=== PATIENT | male | born 1970 | race Caucasian/White ===

== ENCOUNTER 2024-12-19 11:03 | Inpatient (IN) | payer MEDICAID, OTHER ==
[~2024-12-19] VITALS: Ht 180.3 cm; Wt 98.0 kg
[2024-12-19] VITALS (7 sets, daily range): BP systolic 122–149; BP diastolic 79–82; PULSE 89–97; RESP 18–20; TEMP 98.1–98.2; O2SAT 94–98
--- NOTE | 2024-12-19 11:34 | ED.PDOC ---
GI ASSESSMENT HPI Comments 54 y/o M presents with significant other for c/o blood in his vomit, black stools, lightheadedness, and slur speech. Patient and significant other are poor historians. Patient reports producing red-tinted, black vomitus and black stool. noticed patient having slur speech for the past 2 days. Last seen normal a ccording to was at least two nights ago. Patient reports an episode of lightheadedness today. Reports last vomiting and having a bowel movement at 0200 and 0900, respectively, this morning. Denies any current blood thinner. Patient denies any similar symptoms in the past. Significant other reports on patient drinking increase amounts of alcohol, lately, at 5-6 "tall cans" within the past week, with last intake being yesterday. Patient reports having increased seizure activity, lately, with last seizure taking place 1 week ago. He was placed on Lacosamide by his PCP 3 weeks ago to take alongside his Briviact. Denies having any abdominal pain, weakness, or other associated symptoms at this time. Vitals: temperature of 98.1F, pulse rate of 140, respiratory rate of 20, blood pressure of 117/98, and a SpO2 of 98%RA Past medical history: seizures on 100mg Briviact and 100mg Lacosamide Past surgical history: hernia repair Donaldson: GI bleed alcohol abuse HPI: Poor Historian. Past Medical History: Past Surgical History: REVIEW OF SYSTEMS: CONSTITUTIONAL: Denies acute: fever, diaphoresis, chills, HEAD: Denies acute: headache, photophobia Eyes: Denies acute: Double vision, vision loss, eye pain, eye discharge. EARS: Denies acute: tinnitus, hearing loss, ear discharge, ear pain, THROAT: Denies acute: sore throat, swelling, difficulty swallowing , pain with swallowing, change in voice. NECK: Denies acute: neck pain, neck swelling, stiff neck. HEART: Denies acute : chest pain, palpitations, LUNGS: Denies acute: SOB, wheezing, cough, hemoptysis ABDOMEN: Denies acute: abdominal pain, SKIN: Denies acute: rash, redness, lesions, itchiness. EXTREMITIES: Denies acute: calf pain, numbness, tingling, weakness, denies pain in extremity. Denies acute: Low back pain. Neuro: Denies acute: focal neurological deficit, motor or sensory focal neurological deficit, , seizure like activity, confusion, , change in mental status, loss of bowel or bladder function, cauda equina like symptoms. : Denies acute: dysuria, hematuria, flank pain, increase in urinary frequency. PSYCH: Denies acute: hallucination, suicidal ideation, homicidal ideation. PHYSICAL EXAM: General: -----[id number]---acute distress, awake and alert. Head: normocephalic, atraumatic. Neck: supple, trachea is midline, no swelling. Throat: Normal phonation. Eyes:, no erythema, no purulent discharge, no proptosis, no icterus. Heart: regular tachycardic,, no significant murmur appreciated. Lungs: no apparent respiratory distress, Able to speak in full sentences. No wheezing, no rhonchi, no crackles. No stridors Clear to auscultation bilaterally. Abdomen: non tender to palpation, non distended, soft, no guarding, no rebound, + bowel sounds. Neuro: Awake, Alert, oriented to name, self, situation, follows commands GCS=15. Speech is normal. Skin: no petechia, no purpura, no cyanosis, non-pale, not jaundice. Lower extremities: --no - Pitting edema no deformity, no focal swelling, no calf TTP. Makes eye contact. moves all four extremities. Face: no apparent facial droop. Ambulating in the ED independently. Stroke: finger to nose cerebellar testing is intact. No pronator drift. Symmetrical natural resources specialist muscle strength b/l PERRLA, EOM-I CN 2-12 are grossly intact, No nystagmus. No nuchal rigidity, Kernig's sign, Brudzinski's sign, no meningeal signs. ED COURSE: Chief Complaint: GI Bleed Time Seen by MD: 11:15 Reviewed Notes: Nurses Notes, Medications, Allergies Allergies: Coded Allergies: Amoxicillin (Verified Allergy, Unknown, 12/19/24) Information Source: Patient, Significant Other Mode of Arrival: Ambulatory Was a procedure done? Was a procedure done?: No GI differential Dx Differential Diagnosis: Other (Diverticulitis, colitis, fistula, neoplasm, hemorrhoids, anal fissures, constipation, Crohn's disease, ulcerative colitis) X-Ray, Labs, Meds, VS Vital Signs Date Time Temp Pulse Resp B/P (MAP) Pulse Ox O2 Delivery O2 Flow Rate FiO2 12/19/24 11:50 98.2 99 16 140/ 98 98.2 12/19/24 11:49 89 20 98 Room Air* 0 21 12/19/24 11:22 98.1 140 20 117/98 (104) 98 98.1 Lab Test 12/19/24 14:31 12/19/24 13:37 12/19/24 12:49 12/19/24 11:40 Range/Units Troponin I High Sensitivity 9 11 12 </=54 ng/L Lactic Acid Level 1.7 3.2 *H 0.4-2.0 mmol/L White Blood Count 8.2 4.4-10.8 10^3/uL Red Blood Count 4.32 L 4.5-5.90 10^6/uL Hemoglobin 14.5 13.5-17.5 g/dL Hematocrit 42.9 41.0-53.0 % Mean Corpuscular Volume 99.4 80.0-100.0 fL Mean Corpuscular Hemoglobin 33.7 H 28.0-32.0 pg Mean Corpuscular Hemoglobin Concent 33.9 32.0-36.0 g/dL Red Cell Distribution Width 17.9 H 11.8-14.3 % Platelet Count 198 140-450 10^3/uL Mean Platelet Volume 8.1 6.9-10.8 fL Neutrophils (%) (Auto) 75.2 37.0-80.0 % Lymphocytes (%) (Auto) 17.2 10.0-50.0 % Monocytes (%) (Auto) 7.0 0.0-12.0 % Eosinophils (%) (Auto) 0.1 0.0-7.0 % Basophils (%) (Auto) 0.5 0.0-2.0 % Neutrophils # (Auto) 6.1 1.6-8.6 10 ^3/uL Lymphocytes # (Auto) 1.4 0.4-5.4 10 ^3/uL Monocytes # (Auto) 0.6 0-1.3 10 ^3/uL Eosinophils # (Auto) 0 0-0.8 10 ^3/uL Basophils # (Auto) 0 0-0.2 10 ^3/uL Nucleated Red Blood Cells 0.0 % Prothrombin Time 9.8 9.3-11.8 sec Prothrombin Time INR 0.92 0.9-1.15 Activated Partial Thromboplast Time 25.0 24.5-34.5 SEC Sodium Level 130 L 136-145 mmol/L Potassium Level 4.1 3.5-5.1 mmol/L Chloride Level 91 L 98-107 mmol/L Carbon Dioxide Level 26 20-31 mmol/L Anion Gap 13 5-15 Blood Urea Nitrogen 27 H 9-23 mg/dL Creatinine 1.08 0.700-1.30 mg/dL Glomerular Filtration Rate Calc 82 >90 mL/min BUN/Creatinine Ratio 25.0 H 10.0-20.0 Serum Glucose 106 74-106 mg/dL Calcium Level 10.6 H 8.7-10.4 mg/dL Magnesium Level 2.1 1.6-2.6 mg/dL Total Bilirubin 2.3 H 0.2-1.0 mg/dL Aspartate Amino Transferase (AST) 59 H 13-40 U/L Alanine Aminotransferase (ALT) 42 H 7-40 U/L Alkaline Phosphatase 111 46-116 U/L Creatine Kinase 749 H 46-171 U/L B-Type Natriuretic Peptide 33.64 0-100 pg/mL Total Protein 7.4 5.7-8.2 g/dL Albumin 4.2 3.2-4.8 g/dL Lipase 38 12-53 U/L Plasma/Serum Blood Alcohol 3.6 <10 mg/dL Test 12/19/24 11:32 12/19/24 00:00 Range/Units POC Glucose 116 H 70-106 mg/dl Urine Color Light-orange Yellow Urine Clarity Turbid H Clear Urine pH 6.0 5.0-9.0 Urine Specific [place] 1.027 1.001-1.035 Urine Protein Trace H Negative Urine Ketones 1+ H Negative Urine Blood Negative Negative /uL Urine Nitrite Negative Negative Urine Bilirubin Negative Negative Urine Urobilinogen Normal Negative mg/dL Urine Leukocyte Esterase Negative Negative /uL Urine RBC <1 0 - 3 /hpf Urine Microscopic WBC 1 0-3 /HPF Urine Squamous Epithelial Cells Few <5 /hpf Urine Bacteria None seen None Seen /hpf Urine Hyaline Casts Mod 0 - 2 /lpf Urine Mucus Few None Seen Urine Glucose Normal Normal mg/dL Urine Opiates Screen Neg NEGATIVE Urine Fentanyl Screen Neg NEGATIVE Urine Barbiturates Screen Neg NEGATIVE Urine Phencyclidine Screen Neg NEGATIVE Urine Amphetamines Screen Neg NEGATIVE Urine Benzodiazepines Screen Pos NEGATIVE Urine Cocaine Screen Neg NEGATIVE Urine Cannabinoids Screen Neg NEGATIVE Current Medications Medications (Trade) Dose Ordered Sig/Taylor Route Start Time Stop Time Status Last Admin Sodium Chloride 1,000 ml @ 1,000 mls/hr Q1H ONCE IV 12/19/24 11:30 12/19/24 12:29 DC 12/19/24 11:41 Ondansetron HCl (Zofran) 8 mg ONCE ONCE IV 12/19/24 11:30 12/19/24 11:31 DC 12/19/24 11:40 Pantoprazole Sodium (Protonix) 40 mg ONCE ONCE IV 12/19/24 11:30 12/19/24 11:31 DC 12/19/24 11:40 Thiamine HCl 100 mg ONCE ONCE IV 12/19/24 11:30 12/19/24 11:31 DC 12/19/24 11:40 Lorazepam (Ativan Inj) 1 mg ONCE ONCE IV 12/19/24 11:30 12/19/24 11:31 DC 12/19/24 11:41 Sodium Chloride 1,000 ml @ 1,000 mls/hr Q1H ONCE IV 12/19/24 14:00 12/19/24 14:59 DC 12/19/24 14:15 [place] [id number] Ph: [phone] DIAGNOSTIC IMAGING Diagnostic Imaging Report : [id number] Signed PATIENT: MAANSA DONALDSON ACCT: [id number] UNIT: [id number] : 1970 LOC: ER ROOM / BED: / AGE / SEX: 54 / M ADM STATUS: REG ER SERVICE 1120 ORDERING PHYSICIAN: CLEVELAND SUAREZ DO PROCEDURE(s): CXRP - CHEST PORTABLE REASON: n/v/d weak ORDER NUMBER(s): [id number], ACCESSION NUMBER(s): [id number] CHEST RADIOGRAPH Indication: n/v/d weak Technique: Single frontal view of the chest was obtained COMPARISON: None FINDINGS: Lines and Tubes: None Lungs: Clear Pleura: No effusion. No pneumothorax. Cardiomediastinal contours: Unremarkable Bones: Unremarkable IMPRESSION: 1. No acute disease. ATED BY: BIJU ANTONIO MD DICTATED DATE/TIME: 12/19/241217 SIGNED BY: BIJU ANTONIO MD SIGNED DATE/TIME: 12/19/241217 CC: [place] [id number] Ph: [phone] DIAGNOSTIC IMAGING Diagnostic Imaging Report : [id number] Signed PATIENT: MANASA DONALDSON ACCT: [id number] UNIT: [id number] : 1970 LOC: ER ROOM / BED: / AGE / SEX: 54 / M ADM STATUS: REG ER SERVICE 1120 ORDERING PHYSICIAN: CLEVELAND SUAREZ DO PROCEDURE(s): HWOCT - HEAD WITHOUT CONTRAST REASON: n/v/d weak slurred h/o sz ORDER NUMBER(s): [id number], ACCESSION NUMBER(s): [id number] EXAM: CT HEAD WITHOUT CONTRAST INDICATION: n/v/d weak slurred h/o sz TECHNIQUE: CT of the head without intravenous contrast. Radiation Dose : 1. Head: CT Dose: CTDI volume is 53 mGy. Dose-length product is 852 mGy*cm The dose indicators for CT are the volume Computed Tomography (CT) Dose Index (CTDIvol) and the Dose Length Product (DLP), and are measured in units of mGy and mGy-cm, respectively. These indicators are not patient dose, but values generated from the CT scanner acquisition factors. The report includes radiation exposure data for exposures received during this examination. COMPARISON: None FINDINGS: There is no evidence of acute intracranial hemorrhage, extra-axial collection, mass effect, midline shift, herniation or hydrocephalus. The ventricles, sulci and cisterns are age appropriate. The barrera-white differentiation is intact. Patchy periventricular and subcortical white matter hypoattenuation is nonspecific but may be related to small vessel ischemic disease. The visualized paranasal sinuses and mastoid air cells are clear. The surrounding soft tissues and osseous structures are unremarkable. IMPRESSION: 1. No acute intracranial abnormality. Radiation optimization: All CT scans at this facility use at least one of these dose optimization techniques: automated exposure control mA and/or kV adjustment per patient size (includes targeted exams where dose is matched to clinical indication) or iterative reconstruction. ATED BY: BIJU ANTONIO MD DICTATED DATE/TIME: 12/19/241212 SIGNED BY: BIJU ANTONIO MD SIGNED DATE/TIME: 12/19/241212 CC: [place] [id number] Ph: [phone] DIAGNOSTIC IMAGING Diagnostic Imaging Report : [id number] Signed PATIENT: MANASA DONALDSON ACCT: [id number] UNIT: [id number] : 1970 LOC: ER ROOM / BED: / AGE / SEX: 54 / M ADM STATUS: REG ER SERVICE 1120 ORDERING PHYSICIAN: CLEVELAND SUAREZ DO PROCEDURE(s): ABPL - CT AB PEL WO CON-NO ORAL OR IV REASON: gi bleed ORDER NUMBER(s): [id number], ACCESSION NUMBER(s): [id number] EXAM: CT Abdomen and Pelvis Without Intravenous Contrast CLINICAL INDICATION: gi bleed TECHNIQUE: Axial computed tomography images of the abdomen and pelvis without intravenous contrast. This CT exam was performed using one or more of the following dose reduction techniques: automated exposure control, adjustment of the mA and/or kV according to patient size, and/or use of iterative reconstruction technique. CONTRAST: RADIATION DOSE: CTDIvol = 19.01 mGy, DLP = 981.4 mGy-cm COMPARISON: FINDINGS: LUNG BASES: Unremarkable. No mass. No consolidation. MEDIASTINUM: Moderate esophageal hiatal hernia. ABDOMEN: LIVER: Hepatomegaly with fatty infiltration. GALLBLADDER AND BILE DUCTS: Unremarkable. No calcified stones. No ductal dilation. PANCREAS: Unremarkable. No ductal dilation. SPLEEN: Unremarkable. No splenomegaly. ADRENALS: Unremarkable. No mass. KIDNEYS AND URETERS: Unremarkable. No obstructing stones. No hydronephrosis. STOMACH AND BOWEL: Unremarkable. No obstruction. No mucosal thickening. PELVIS: APPENDIX: No findings to suggest acute appendicitis. BLADDER: Unremarkable. No stones. REPRODUCTIVE: Unremarkable as visualized. ABDOMEN and PELVIS: INTRAPERITONEAL SPACE: Unremarkable. No free air. No significant fluid collection. BONES/JOINTS: Multiple anterior wedging deformities of L1, T12, T11 and T10 vertebral bodies, likely chronic. No dislocation. SOFT TISSUES: Umbilical hernia containing fat. Bilateral inguinal hernias, larger on the right. VASCULATURE: Unremarkable. No abdominal aortic aneurysm. LYMPH NODES: Unremarkable. No enlarged lymph nodes. OTHER FINDINGS: . . IMPRESSION: 1. Moderate esophageal hiatal hernia. 2. Hepatomegaly with fatty infiltration. 3. Umbilical hernia containing fat. 4. Bilateral inguinal hernias, larger on the right. ATED BY: YURY PEARCE MD DICTATED DATE/TIME: 12/19/24 124 SIGNED BY: YURY PEARCE MD SIGNED DATE/TIME: 12/19/241241 CC: Time of 1ST Reevaluation: 11:15 Reevaluation 1ST: Unchanged Patient Education/Counseling: Diagnosis, Treatment Family Education/Counseling: Diagnosis, Treatment Comments Patient presented with the above HPI.---GI bleed---workup was initiated. patient was found with the above mentioned diagnosis. the following medications were ordered: please refer to order lists of meds and tests obtained by myself Dr. Suarez. Patient ED course and VS have been stabilized. Patient has been reassessed in the ED and remained in a stable condition. Pertinent incidental findings were discussed with the patient and/or family. Patient/family voices understanding and is agreeable with plan. Patient has been observed in the ED adequate length of time to insure improvement/stability. Escalation of care considered: Consideration of escalation to observation or admission Patient has some slight tremors suspecting alcohol withdrawal. I gave him some Ativan. Patient was given fluids and Protonix. Patient was ADMITTED to the medicine team for further evaluation and treatment of their presentation. All the reports of any imaging studies that were ordered by myself were reviewed by myself. Departure 1 Departure Time of Disposition: 13:48 Impression: Primary Impression: GI bleed Additional Impressions: Alcohol abuse Rhabdomyolysis Elevated lactic acid level Disposition: ADMITTED INPATIENT Admit to: [facility] Condition: Guarded Discharged With: Self Critical Care Note Critical Care Time?: Yes (1 hr-critical care time only) I personally scribed for CLEVELAND SUAREZ DO ([email or web address]) on 4/26/25 at 11:34. Electronically submitted by Isael Lopez ([email or web address]). I personally scribed for CLEVELAND SUAREZ DO ([email or web address]) on 12/19/24 at 11:43. Elect ronically submitted by Isale Lopez ([email or web address]). I personally scribed for CLEVELAND SUAREZ DO ([email or web address]) on 12/19/24 at 12:03. El ectronically submitted by Isael Lopez ([email or web address]). I personally scribed for CLEVELAND SUAREZ DO ([email or web address]) on 12/19/24 at 14:11. Electronically submitted by Isael Lopez ([email or web address]). CLEVELAND SUAREZ DO Dec 19, 2024 11:34
[2024-12-19] MEDS: THIAMINE 100mg/ml INJ (200mg/2ml VIAL) IV ONE (11:40)
[2024-12-19] MEDS: ONDANSETRON HCL 4 MG/2 ML VIAL IV ONE (11:40)
[2024-12-19] MEDS: PANTOPRAZOLE 40 MG/10 ML VIAL INJ IV ONE (11:40)
[2024-12-19] MEDS: SODIUM CHLORIDE 0.9% 1,000 ML IV ONE ×2 (11:41→14:15)
[2024-12-19] MEDS: LORazepam 2MG/ML-1ML VIAL IV ONE (11:41)
[2024-12-19 12:03] LABS: Basophils # (auto) 0 10 ^3/uL (0-0.2); Basophils % (auto) 0.5 % (0.0-2.0); Eosinophils # (auto) 0 10 ^3/uL (0-0.8); Eosinophils % (auto) 0.1 % (0.0-7.0); Hematocrit 42.9 % (41.0-53.0); Hemoglobin 14.5 g/dL (13.5-17.5); Lymphocytes # (auto) 1.4 10 ^3/uL (0.4-5.4); Lymphocytes % (auto) 17.2 % (10.0-50.0); Mean Corpuscular Hemoglobin 33.7 pg (28.0-32.0); Mean Corpuscular Hgb Conc. 33.9 g/dL (32.0-36.0); Mean Corpuscular Volume 99.4 fL (80.0-100.0); Monocytes # (auto) 0.6 10 ^3/uL (0-1.3); Neutrophils # (auto) 6.1 10 ^3/uL (1.6-8.6); Neutrophils % (auto) 75.2 % (37.0-80.0); Platelet Count (auto) 198 10^3/uL (140-450); Red Blood Cells 4.32 10^6/uL (4.5-5.90); Red Cell Distribution Width 17.9 % (11.8-14.3); White Blood Cell 8.2 10^3/uL (4.4-10.8)
--- NOTE | 2024-12-19 12:15 | DVH ---
EXAM: CT HEAD WITHOUT CONTRAST INDICATION: n/v/d weak slurred h/o sz TECHNIQUE: CT of the head without intravenous contrast. Radiation Dose : 1. Head: CT Dose: CTDI volume is 53 mGy. Dose-length product is 852 mGy*cm The dose indicators for CT are the volume Computed Tomography (CT) Dose Index (CTDIvol) and the Dose Length Product (DLP), and are measured in units of mGy and mGy-cm, respectively. These indicators are not patient dose, but values generated from the CT scanner acquisition factors. The report includes radiation exposure data for exposures received during this examination. COMPARISON: None FINDINGS: There is no evidence of acute intracranial hemorrhage, extra-axial collection, mass effect, midline s hift, herniation or hydrocephalus. The ventricles, sulci and cisterns are age appropriate. The barrera-white differentiation is intact. Patchy periventricular and subcortical white matter hypoattenuation is nonspecific but may be related to small vessel ischemic disease. The visualized paranasal sinuses and mastoid air cells are clear. The surrounding soft tissues and osseous structures are unremarkable. IMPRESSION: 1. No acute intracranial abnormality. Radiation optimization: All CT scans at this facility use at least one of these dose optimization cleo hniques: automated exposure control mA and/or kV adjustment per patient size (includes targeted exam s where dose is matched to clinical indication) or iterative reconstruction.
--- NOTE | 2024-12-19 12:20 | DVH ---
CHEST RADIOGRAPH Indication: n/v/d weak Technique: Single frontal view of the chest was obtained COMPARISON: None FINDINGS: Lines and Tubes: None Lungs: Clear Pleura: No effusion. No pneumothorax. Cardiomediastinal contours: Unremarkable Bones: Unremarkable IMPRESSION: 1. No acute disease.
[2024-12-19 12:26] LABS: INR 0.92 (0.9-1.15); Prothrombin Time 9.8 sec (9.3-11.8)
[2024-12-19 12:27] LABS: Albumin 4.2 g/dL (3.2-4.8); Alkaline Phosphatase 111 U/L (46-116); Anion Gap 13 (5-15); Carbon Dioxide 26 mmol/L (20-31); Glucose 106 mg/dL (74-106); Lipase 38 U/L (12-53); Magnesium 2.1 mg/dL (1.6-2.6); Potassium 4.1 mmol/L (3.5-5.1); Total Protein 7.4 g/dL (5.7-8.2)
[2024-12-19 12:31] LABS: Chloride 91 mmol/L (98-107); Sodium 130 mmol/L (136-145)
[2024-12-19 12:32] LABS: Alanine Aminotransferase 42 U/L (7-40); Aspartate Aminotransferase 59 U/L (13-40); Bilirubin, Total 2.3 mg/dL (0.2-1.0); Blood Urea Nitrogen 27 mg/dL (9-23); Calcium 10.6 mg/dL (8.7-10.4); Creatine Kinase IFCC 749 U/L (46-171)
[2024-12-19 12:33] LABS: Lactic Acid w/Reflex 3.2 mmol/L (0.4-2.0)
--- NOTE | 2024-12-19 12:45 | DVH ---
EXAM: CT Abdomen and Pelvis Without Intravenous Contrast CLINICAL INDICATION: gi bleed TECHNIQUE: Axial computed tomography images of the abdomen and pelvis without intravenous contrast. This CT exam was performed using one or more of the following dose reduction techniques: automated exposure control, adjustment of the mA and/or kV according to patient size, and/or use of iterative r econstruction technique. CONTRAST: RADIATION DOSE: CTDIvol = 19.01 mGy, DLP = 981.4 mGy-cm COMPARISON: FINDINGS: LUNG BASES: Unremarkable. No mass. No consolidation. MEDIASTINUM: Moderate esophageal hiatal hernia. ABDOMEN: LIVER: Hepatomegaly with fatty infiltration. GALLBLADDER AND BILE DUCTS: Unremarkable. No calcified stones. No ductal dilation. PANCREAS: Unremarkable. No ductal dilation. SPLEEN: Unremarkable. No splenomegaly. ADRENALS: Unremarkable. No mass. KIDNEYS AND URETERS: Unremarkable. No obstructing stones. No hydronephrosis. STOMACH AND BOWEL: Unremarkable. No obstruction. No mucosal thickening. PELVIS: APPENDIX: No findings to suggest acute appendicitis. BLADDER: Unremarkable. No stones. REPRODUCTIVE: Unremarkable as visualized. ABDOMEN and PELVIS: INTRAPERITONEAL SPACE: Unremarkable. No free air. No significant fluid collection. BONES/JOINTS: Multiple anterior wedging deformities of L1, T12, T11 and T10 vertebral bodies, likel y chronic. No dislocation. SOFT TISSUES: Umbilical hernia containing fat. Bilateral inguinal hernias, larger on the right. VASCULATURE: Unremarkable. No abdominal aortic aneurysm. LYMPH NODES: Unremarkable. No enlarged lymph nodes. OTHER FINDINGS: . . IMPRESSION: 1. Moderate esophageal hiatal hernia. 2. Hepatomegaly with fatty infiltration. 3. Umbilical hernia containing fat. 4. Bilateral inguinal hernias, larger on the right.
[2024-12-19 13:41] LABS: Blood Alcohol 3.6 mg/dL (<10)
--- NOTE | 2024-12-19 14:02 | DVHHP2 ---
History of Present Illness Reason for Visit: gi bleed History of Present Illness 54-year-old male with a history of seizure disorder, chronic alcohol use, depression, and prior neurosurgery, presenting with hematemesis and melena. The patient reports vomiting dark red blood since , followed by black stools mixed with bright red blood. He also reports lightheadedness and slowed speech over the past two days but denies syncope. He denies abdominal pain, chest pain, or shortness of breath. He is compliant with anti-seizure medications and reports daily alcohol intake of four tall cans over the past nine months, exacerbated by stress related to his house foreclosure. No prior history of EGD or colonoscopy. He denies seizures during alcohol withdrawal but has not abstained from alcohol for long periods recently. In the ED, he received normal saline, Ativan, Pantoprazole, and Zofran. Labs showed hyponatremia (Na 130), elevated BUN (27), lactate 3.2, mild transaminitis (AST 59, ALT 47), total bilirubin 2.3, CK 749, and calcium 10.6. CBC was unremarkable. CT brain and CXR were unremarkable. CT abdomen/pelvis revealed a hiatal hernia, hepatomegaly, and bilateral inguinal hernias (right > left). Patient endorses significant depression and is agreeable to psychiatry and social work consults for alcohol rehabilitation. Past Medical History see hpi above Past Surgical History see hpi above Family History Reviewed, non-contributory to the management of this case. Past Social History Patient drinks heavy daily he has been drinking heavily daily for the last nine months four tall beers a daily denies drug or or smoking Review of Systems Constitutional: No: Fever, Chills, Sweats, Weakness, Malaise, Other Eyes: No: Pain, Vision change, Conjunctivae inflammation, Eyelid inflammation, Other, Redness ENT: No: Ear pain, Ear discharge, Nose pain, Nose discharge, Nose congestion, Mouth pain, Mouth swelling, Throat pain, Throat swelling, Other Respiratory: No: Cough, Dry, Shortness of breath, SOB with excertion, Wheezing, Hemoptysis, Pleuritic Pain, Sputum, Wheezing, Other Cardiovascular: No: Chest Pain, Palpitations, Orthopnea, Paroxysmal Noc. Dysp jolynn, Edema, Lt Headedness, Other Gastrointestinal: Nausea, Vomiting, Abdominal Pain, Melena, Hematochezia; No: Diarrhea, Constipation, Other Genitourinary: No Dysuria, No Frequency, No Incontinence, No Hematuria, No Retention, No Other Musculoskeletal: No: other, neck pain, shoulder pain, arm pain, back pain, hand pain, leg pain, foot pain Skin: Rash; No: Lesions, Jaundice, Bruising, Other Neurological: Weakness; No: Numbness, Incoordination, Change in speech, Confusion, Seizures, Other Allergies: Coded Allergies: Amoxicillin (Verified Allergy, Unknown, 12/19/24) Exam Vital Signs Vital Signs Date Time Temp Pulse Resp B/P (MAP) Pulse Ox O2 Delivery O2 Flow Rate FiO2 12/19/24 11:49 89 20 98 Room Air* 0 21 12/19/24 11:22 98.1 117/98 (104) 98.1 General Appearance: Alert, Oriented X3, Cooperative, No acute distress HEENT: Atraumatic, PERRLA, EOMI, Mucous membr. moist/pink Respiratory: Clear to auscultation, Normal air movement Cardiovascular: Regular rate, Normal S1, Normal S2, No murmurs Abdominal: Normal bowel sounds, Soft, No tenderness, No hepatospenomegaly, No masses Extremities: No clubbing, No cyanosis, No edema, Normal pulses, No tenderness/swelling Skin: No rashes, No breakdown, No significant lesion Neuro: Normal gait, Normal speech, Strength at 5/5 X4 ext, Normal tone, Sensation intact, Cranial nerves 3-12 NL Psych/Mental Status: Mental status NL, Mood NL Labs/Xrays CT scan abdomen pelvis shows esophageal hiatal hernia hepatomegaly bilateral inguinal hernia right greater than left without strangulation Chest x-ray is unremarkable CT scan of the brain unremarkable I reviewed labs, imaging CT scan abdomen pelvis, EKG and all diagnostic studies on this patient from ED records and the medical chart Labs Test 12/19/24 13:37 12/19/24 12:49 12/19/24 11:40 12/19/24 11:32 Range/Units Troponin I High Sensitivity 11 </=54 ng/L White Blood Count 8.2 4.4-10.8 10^3/uL Red Blood Count 4.32 L 4.5-5.90 10^6/uL Hemoglobin 14.5 13.5-17.5 g/dL Hematocrit 42.9 41.0-53.0 % Mean Corpuscular Volume 99.4 80.0-100.0 fL Mean Corpuscular Hemoglobin 33.7 H 28.0-32.0 pg Mean Corpuscular Hemoglobin Concent 33.9 32.0-36.0 g/dL Red Cell Distribution Width 17.9 H 11.8-14.3 % Platelet Count 198 140-450 10^3/uL Mean Platelet Volume 8.1 6.9-10.8 fL Neutrophils (%) (Auto) 75.2 37.0-80.0 % Lymphocytes (%) (Auto) 17.2 10.0-50.0 % Monocytes (%) (Auto) 7.0 0.0-12.0 % Eosinophils (%) (Auto) 0.1 0.0-7.0 % Basophils (%) (Auto) 0.5 0.0-2.0 % Neutrophils # (Auto) 6.1 1.6-8.6 10 ^3/uL Lymphocytes # (Auto) 1.4 0.4-5.4 10 ^3/uL Monocytes # (Auto) 0.6 0-1.3 10 ^3/uL Eosinophils # (Auto) 0 0-0.8 10 ^3/uL Basophils # (Auto) 0 0-0.2 10 ^3/uL Nucleated Red Blood Cells 0.0 % Prothrombin Time 9.8 9.3-11.8 sec Prothrombin Time INR 0.92 0.9-1.15 Activated Partial Thromboplast Time 25.0 24.5-34.5 SEC Sodium Level 130 L 136-145 mmol/L Potassium Level 4.1 3.5-5.1 mmol/L Chloride Level 91 L 98-107 mmol/L Carbon Dioxide Level 26 20-31 mmol/L Anion Gap 13 5-15 Blood Urea Nitrogen 27 H 9-23 mg/dL Creatinine 1.08 0.700-1.30 mg/dL Glomerular Filtration Rate Calc 82 >90 mL/min BUN/Creatinine Ratio 25.0 H 10.0-20.0 Serum Glucose 106 74-106 mg/dL Calcium Level 10.6 H 8.7-10.4 mg/dL Magnesium Level 2.1 1.6-2.6 mg/dL Total Bilirubin 2.3 H 0.2-1.0 mg/dL Aspartate Amino Transferase (AST) 59 H 13-40 U/L Alanine Aminotransferase (ALT) 42 H 7-40 U/L Alkaline Phosphatase 111 46-116 U/L Creatine Kinase 749 H 46-171 U/L B-Type Natriuretic Peptide 33.64 0-100 pg/mL Total Protein 7.4 5.7-8.2 g/dL Albumin 4.2 3.2-4.8 g/dL Lipase 38 12-53 U/L Plasma/Serum Blood Alcohol 3.6 <10 mg/dL POC Glucose 116 H 70-106 mg/dl Assessment/Plan Assessment/Plan 54-year-old male with alcohol use disorder, seizure history, and depression presenting with upper GI bleeding (hematemesis, melena), hyponatremia, and signs of alcohol dependence. Will admit for GI bleed management, alcohol withdrawal monitoring, and psychosocial support. acute Upper gastrointestinal bleeding likely secondary to esophageal varices or gastritis associated with alcohol use and hiatal hernia found on ct scan NPO status, initiate Pantoprazole drip GI consult placed for urgent EGD Monitor hemoglobin/hematocrit q6h Type and screen, ensure blood products available IV fluids for volume support Monitor for signs of hemodynamic instability ordered protonix drip for now acute Alcohol withdrawal risk in setting of chronic use last drink yesterday Start CIWA protocol Initiate Librium taper, continue Ativan PRN for breakthrough symptoms Seizure precautions in place Thiamine, folate, multivitamin supplementation Monitor electrolytes closely, replace magnesium and potassium as needed acute Hyponatremia likely due to chronic alcohol use and volume depletion Gentle correction with IV fluids Monitor sodium in am Avoid rapid correction to prevent central pontine myelinolysis acute Depression with psychosocial stressors related to housing instability Psychiatry (telepsych) consult placed Social work consult for alcohol rehab options and housing resources Evaluate for initiation of antidepressant therapy if appropriate chronic Seizure disorder, stable on home medications Continue home anti-seizure regimen nursing to reconcile but will start keppra for now Monitor for withdrawal-related seizure activity acute Hepatomegaly likely secondary to alcoholic liver disease Monitor LFTs, bilirubin, INR Picu Nurse on alcohol cessation Evaluate for signs of decompensated liver disease (ascites, encephalopathy) acute Hiatal hernia identified on imaging GI consult fu recs Proton pump inhibitor therapy ongoing acute Bilateral inguinal hernias (right > left), asymptomatic without strangulation No acute intervention needed Outpatient surgical referral if symptomatic post-discharge CHRONIC PROBLEM LIST: Alcohol Use Disorder Seizure Disorder Depression Status Post Neurosurgery FEN / PROPHYLAXIS (PPx): IV normal saline for volume repletion Monitor BMP, correct sodium cautiously banana bag Thiamine 100 mg IV daily, folate 1 mg daily NPO for GI evaluation, advance diet as tolerated post-EGD SCDs while inpatient/Hold pharmacologic prophylaxis until GI bleeding controlled Pantoprazole drip for active GI bleed, transition to BID dosing when stable DISPOSITION Admit to telemetry for monitoring of GI bleed and alcohol withdrawal. Await GI evaluation and EGD. Initiate CIWA protocol with seizure precautions. Coordinate care with psychiatry and social work for mental health and substance abuse management. Monitor labs, hemodynamics, and neurologic status closely. Plan discussed with: Patient Date of Service: Dec 19, 2024 Billing Provider: JEANINE HAMPTON DNP Common Visit Codes: [id number] INP/OBS CARE (HIGH) JEANINE HAMPTON DNP Dec 19, 2024 14:02
[2024-12-19] MEDS ORDERED: ONDANSETRON HCL 4 MG/2 ML VIAL IV PRN (16:00)
[2024-12-19] MEDS ORDERED: NITROGLYCERIN 0.4 MG SL TAB SL PRN (16:00)
[2024-12-19] MEDS ORDERED: LORazepam 2MG/ML-1ML VIAL IV PRN (16:00)
[2024-12-19] MEDS ORDERED: DOCUSATE SOD 100 MG CAP PO PRN (16:00)
[2024-12-19] MEDS ORDERED: MORPHINE SULFATE INJ 2 MG/ml SYRG IV PRN (16:00)
--- NOTE | 2024-12-19 16:49 | DVH ---
ABDOMINAL ULTRASOUND CLINICAL HISTORY: eval for upper abd pain and transaminitis TECHNIQUE: Multiple grayscale and color Doppler ultrasound images were obtained of the abdomen. WID: COMPARISON: CT abdomen and pelvis dated 12/19/2024 FINDINGS: Liver and Biliary System: Increased echogenicity, normal size measuring 16.9 cm. No focal hepatic o bservations. A cyst is seen within the liver, right lobe measuring up to 1.4 cm. No intrahepatic bile duct dilatation. The common duct measures 0.5 cm at the myron hepatis. The gallbladder normal c aliber without cholelithiasis or wall thickening. Pancreas: Not well-visualized. Kidneys: The right kidney is 10.2 cm . No hydronephrosis, increased echogenicity, shadowing stone, or focal lesion. IMPRESSION: 1. Hepatic steatosis. 2. No acute abnormality.
[2024-12-19 16:52] LABS: Blood Alcohol 3.2 mg/dL (<10); Magnesium 2.1 mg/dL (1.6-2.6)
[2024-12-19] MEDS: SODIUM CHLORIDE 0.9% 1,000 ML IV SCH (16:56)
[2024-12-19] MEDS: chlordiazePOXIDE HCL 25 MG CAP PO SCH (16:57)
[2024-12-19 17:32] LABS: Hematocrit 36.9 % (41.0-53.0); Hemoglobin 12.5 g/dL (13.5-17.5)
[2024-12-19 17:33] LABS: Urine Bacteria None Seen /hpf (None Seen)
[2024-12-19 17:45] LABS: Urine Blood Negative /uL (Negative); Urine Clarity Turbid (Clear); Urine Color Light-Orange (Yellow); Urine Hyaline Cast MOD /lpf (0 - 2); Urine Mucus FEW (None Seen); Urine Protein, UAD TRACE (Negative); Urine Specific Gravity 1.027 (1.001-1.035); Urine Squamous Epithelial Cell FEW /hpf (<5); Urine Urobilinogen Normal (Negative); Urine WBC 1 /HPF (0-3)
[2024-12-19 17:56] LABS: Amphetamine Screen, Urine Neg (NEGATIVE); Barbiturate Scree,Urine Neg (NEGATIVE); Benzodiazephine Screen, Urine Pos (NEGATIVE); Cocaine Screen, Urine Neg (NEGATIVE); Opiate Scree,Urine Neg (NEGATIVE); Phencyclidine Screen, Urine Neg (NEGATIVE)
[2024-12-19 18:01] LABS: Cannabinoid Screen, Urine Neg (NEGATIVE)
[2024-12-19] MEDS: PANTOPRAZOLE 40mg/50ML NS AE 50 ML IV SCH (18:54)
[2024-12-19] MEDS ORDERED: LACO100T3 PO (22:04)
[2024-12-19] MEDS ORDERED: BRIV1TAB7 PO (22:04)
[2024-12-20] VITALS (8 sets, daily range): BP systolic 92–117; BP diastolic 56–77; PULSE 82–101; RESP 16–20; TEMP 98–99.1; O2SAT 95–100
[2024-12-20] MEDS: FOLIC ACID 1 MG, MAGNESIUM SULF SDV 50% 8 MEQ, MULTIPLE VITAMIN 10 ML, THIAMINE INJ 100... INJ SCH (00:39)
[2024-12-20] MEDS: diphenhdrAMINE HCL 25 MG CAP PO PRN (05:53)
[2024-12-20 07:50] LABS: Basophils # (auto) 0 10 ^3/uL (0-0.2); Basophils % (auto) 0.3 % (0.0-2.0); Eosinophils # (auto) 0 10 ^3/uL (0-0.8); Eosinophils % (auto) 0.6 % (0.0-7.0); Hematocrit 32.6 % (41.0-53.0); Hemoglobin 10.8 g/dL (13.5-17.5); Lymphocytes # (auto) 2.4 10 ^3/uL (0.4-5.4); Lymphocytes % (auto) 38.4 % (10.0-50.0); Mean Corpuscular Hemoglobin 33.9 pg (28.0-32.0); Mean Corpuscular Hgb Conc. 33.1 g/dL (32.0-36.0); Mean Corpuscular Volume 102.5 fL (80.0-100.0); Monocytes # (auto) 0.6 10 ^3/uL (0-1.3); Neutrophils # (auto) 3.1 10 ^3/uL (1.6-8.6); Neutrophils % (auto) 50.7 % (37.0-80.0); Nucleated Red Blood Cells % 0.2 %; Platelet Count (auto) 135 10^3/uL (140-450); Red Blood Cells 3.18 10^6/uL (4.5-5.90); Red Cell Distribution Width 17.8 % (11.8-14.3); White Blood Cell 6.2 10^3/uL (4.4-10.8)
[2024-12-20 08:13] LABS: Alanine Aminotransferase 28 U/L (7-40); Alkaline Phosphatase 78 U/L (46-116); Anion Gap 10 (5-15); BUN/Creatinine Ratio 20.2 (10.0-20.0); Blood Urea Nitrogen 18 mg/dL (9-23); Carbon Dioxide 24 mmol/L (20-31); Chloride 101 mmol/L (98-107); Potassium 3.6 mmol/L (3.5-5.1)
[2024-12-20 08:14] LABS: Bilirubin, Total 1.2 mg/dL (0.2-1.0)
[2024-12-20 08:15] LABS: Aspartate Aminotransferase 41 U/L (13-40); Calcium 8.2 mg/dL (8.7-10.4); Glucose 74 mg/dL (74-106); Sodium 135 mmol/L (136-145); Total Protein 5.2 g/dL (5.7-8.2)
--- NOTE | 2024-12-20 09:12 | ECG ---
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
[2024-12-20] MEDS ORDERED: chlordiazePOXIDE HCL 25 MG CAP PO SCH (10:00)
[2024-12-20] MEDS: THIAMINE HCL 100 MG TAB PO ONE (11:45)
[2024-12-20] MEDS: FOLIC ACID 1 MG TAB PO ONE (12:46)
[2024-12-20] MEDS: MAGNESIUM OXIDE 400 MG TAB PO ONE (12:47)
[2024-12-20] MEDS: MULTIPLE VITAMIN TAB PO ONE (12:47)
--- NOTE | 2024-12-20 22:11 | DVHPN2 ---
Subjective The patient is seen and examined at bedside. No complaint today. Reviewed: Care Plan, H&P, Labs, Medications, Previous Orders, Radiology Changes from previous H/P or p: No Changes Eyes: No Pain, No Vision change, No Conjunctivae inflammation, No Eyelid inflammation, No Other, No Redness ENT: No Ear pain, No Ear discharge, No Nose pain, No Nose discharge, No Nose congestion, No Mouth pain, No Mouth swelling, No Throat pain, No Throat swelling, No Other Cardiovascular: No Chest Pain, No Palpitations, No Orthopnea, No Paroxysmal Noc. Dyspnea, No Edema, No Lt Headedness, No Other Respiratory: No Cough, No Dry, No Shortness of breath, No SOB with excertion, No Wheezing, No Hemoptysis, No Pleuritic Pain, No Sputum, No Other Gastrointestinal: Nausea, Vomiting, Abdominal Pain; No Diarrhea, No Constipation; Melena, Hematochezia; No Other Genitourinary: No Dysuria, No Frequency, No Incontinence, No Hematuria, No Retention, No Other Musculoskeletal: No other, No neck pain, No shoulder pain, No arm pain, No back pain, No hand pain, No leg pain, No foot pain Skin: Rash; No Lesions, No Jaundice, No Bruising, No Other Objective Vitals Vital Signs Date Time Temp Pulse Resp B/P (MAP) Pulse Ox O2 Delivery O2 Flow Rate FiO2 12/20/24 21:00 98.2 101 16 109/66 (80) 95 98.2 12/20/24 08:00 Room Air* 0 21 Intake/Output Intake and Output 12/20/24 07:00 Intake Total 3039.5 ml Balance 3039.5 ml Intake Oral 0 ml IV Total 3039.5 ml # Voids 1 General Appearance: Alert, Oriented X3, Cooperative, No acute distress HEENT: Atraumatic, PERRLA, EOMI, Mucous membr. moist/pink Neck: Supple Lungs: Clear to auscultation, Normal air movement Cardiovascular: Regular rate, Normal S1, Normal S2, No murmurs, Gallops, Rubs Abdomen: Normal bowel sounds, Soft, No tenderness, No hepatospenomegaly Neuro: Cranial nerves 3-12 NL Psych/Mental Status: Mental status NL Medications Current Medications Medications Dose Ordered Sig/Taylor Route Start Time Stop Time Status Last Admin Dose Admin Pantoprazole Sodium 50 ml @ 10 mls/hr Q5H IV 12/19/24 16:00 12/20/24 17:19 10 MLS/HR Chlordiazepoxide HCl 25 mg Q12HR PO 12/21/24 22:00 12/22/24 10:01 Chlordiazepoxide HCl 25 mg QAM PO 12/22/24 22:00 12/22/24 22:01 Sodium Chloride 1,000 ml @ 120 mls/hr Q8H20M IV 12/19/24 16:00 12/20/24 21:09 120 MLS/HR Ondansetron HCl 4 mg Q4HP PRN IV 12/19/24 16:00 Docusate Sodium 100 mg BIDPRN PRN PO 12/19/24 16:00 Morphine Sulfate 2 mg Q4HPRN PRN IV 12/19/24 16:00 Nitroglycerin 0.4 mg Q5MINP PRN SL 12/19/24 16:00 Lorazepam 1 mg Q2HPRN PRN IV 12/19/24 16:00 Diphenhydramine HCl 25 mg Q6HP PRN PO 12/20/24 05:45 12/20/24 20:15 25 MG Chlordiazepoxide HCl 50 mg Q12HR PO 12/20/24 22:00 12/21/24 10:01 Folic Acid 1 mg DAILY PO 12/21/24 10:00 Multivitamins 1 tab DAILY PO 12/21/24 10:00 Magnesium Oxide 400 mg DAILY PO 12/21/24 10:00 Thiamine HCl 100 mg DAILY PO 12/21/24 10:00 Laboratory Results Laboratory Tests 12/20/24 06:27 Chemistry Test 12/20/24 06:27 Albumin 3.0 g/dL (3.2-4.8) L Calcium Level 8.2 mg/dL (8.7-10.4) L Total Protein 5.2 g/dL (5.7-8.2) L LFT Test 12/20/24 06:27 Alanine Aminotransferase (ALT) 28 U/L (7-40) Alkaline Phosphatase 78 U/L (46-116) Aspartate Amino Transferase (AST) 41 U/L (13-40) H Total Bilirubin 1.2 mg/dL (0.2-1.0) H Urinalysis Test 12/19/24 00:00 Urine Color Light-orange (Yellow) Urine Clarity Turbid (Clear) H Urine pH 6.0 (5.0-9.0) Urine Specific [place] 1.027 (1.001-1.035) Urine Protein Trace (Negative) H Urine Ketones 1+ (Negative) H Urine Blood Negative /uL (Negative) Urine Nitrite Negative (Negative) Urine Bilirubin Negative (Negative) Urine Urobilinogen Normal mg/dL (Negative) Urine Leukocyte Esterase Negative /uL (Negative) Urine RBC <1 /hpf (0 - 3) Urine Microscopic WBC 1 /HPF (0-3) Urine Squamous Epithelial Cells Few /hpf (<5) Urine Bacteria None seen /hpf (None Seen) Urine Hyaline Casts Mod /lpf (0 - 2) Urine Mucus Few (None Seen) Urine Glucose Normal mg/dL (Normal) Microbiology Microbiology Date/Time Source Procedure Growth Status 12/20/24 00:44 Nose MRSA Screen - Final Complete Labs and/or images reviewed: Labs reviewed by me Assessment/Plan Assessment/Plan Acute Upper gastrointestinal bleeding likely secondary to ?esophageal varices or gastritis associated with alcohol use and hiatal hernia Acute Alcohol withdrawal risk in setting of chronic use Acute Hyponatremia likely due to chronic alcohol use and volume depletion acute Depression with psychosocial stressors related to housing instability Chronic Seizure disorder, stable on home medications Acute Hepatomegaly likely secondary to alcoholic liver disease Acute Hiatal hernia identified on imaging Acute Bilateral inguinal hernias (right > left), asymptomatic without strangulation Alcohol Use Disorder Seizure Disorder Depression Status Post Neurosurgery Continuing current management. Continuing with Protonix. Continuing with IV fluid. Waiting for GI specialist to see the patient. Advance patient's diet to clear Liquid diet. Waiting for GI specialist to see the patient. Continuing with seizure medication. Continuing with banana bag and alcohol withdrawal protocol. This medical document was created using an electronic medical record system with [employer] direct computerized dictation system. Although this document has been carefully reviewed, there may still be some phonetic and typographical errors. These areas are purely typographical due to imperfections of the software programs, and do not reflect any compromise in the patient's medical care. Plan discussed with: Patient My Orders Orders - GARY AVILES MD Procedure Category Date Status Time Soft Diet DIET 12/20/24 Transmitted Dinner Date of Service: Dec 20, 2024 Billing Provider: GARY AVILES MD Common Visit Codes: [id number] INP/OBS CARE(HIGH) GARY AVILES MD Dec 20, 2024 22:11
[2024-12-20] MEDS: chlordiazePOXIDE HCL 25 MG CAP PO SCH (22:17)
[2024-12-21] VITALS (8 sets, daily range): BP systolic 104–133; BP diastolic 59–85; PULSE 66–102; RESP 14–18; TEMP 97.9–98.4; O2SAT 92–97
[2024-12-21 08:19] LABS: Basophils # (auto) 0 10 ^3/uL (0-0.2); Basophils % (auto) 0.3 % (0.0-2.0); Eosinophils # (auto) 0.1 10 ^3/uL (0-0.8); Eosinophils % (auto) 1.8 % (0.0-7.0); Hematocrit 27.8 % (41.0-53.0); Hemoglobin 9.3 g/dL (13.5-17.5); Lymphocytes # (auto) 1.8 10 ^3/uL (0.4-5.4); Lymphocytes % (auto) 35.9 % (10.0-50.0); Mean Corpuscular Hemoglobin 33.8 pg (28.0-32.0); Mean Corpuscular Hgb Conc. 33.3 g/dL (32.0-36.0); Mean Corpuscular Volume 101.3 fL (80.0-100.0); Monocytes # (auto) 0.4 10 ^3/uL (0-1.3); Monocytes % (auto) 7.9 % (0.0-12.0); Neutrophils # (auto) 2.7 10 ^3/uL (1.6-8.6); Neutrophils % (auto) 54.1 % (37.0-80.0); Platelet Count (auto) 134 10^3/uL (140-450); Red Blood Cells 2.74 10^6/uL (4.5-5.90); Red Cell Distribution Width 17.4 % (11.8-14.3); White Blood Cell 5.1 10^3/uL (4.4-10.8)
[2024-12-21 08:35] LABS: Carbon Dioxide 24 mmol/L (20-31); Chloride 104 mmol/L (98-107); Potassium 3.7 mmol/L (3.5-5.1); Sodium 137 mmol/L (136-145)
[2024-12-21 08:38] LABS: Calcium 8.2 mg/dL (8.7-10.4)
[2024-12-21] MEDS: MULTIPLE VITAMIN TAB PO SCH (08:40)
[2024-12-21 08:41] LABS: BUN/Creatinine Ratio 14.6 (10.0-20.0); Blood Urea Nitrogen 13 mg/dL (9-23); Glucose 81 mg/dL (74-106)
[2024-12-21] MEDS: MAGNESIUM OXIDE 400 MG TAB PO SCH (08:41)
[2024-12-21] MEDS: THIAMINE HCL 100 MG TAB PO SCH (08:42)
[2024-12-21] MEDS: FOLIC ACID 1 MG TAB PO SCH (08:42)
[2024-12-21 08:45] LABS: Anion Gap 9 (5-15)
--- NOTE | 2024-12-21 11:13 | DVHPN2 ---
Subjective The patient is seen and examined at bedside. No complaint today. Reviewed: Care Plan, H&P, Labs, Medications, Previous Orders, Radiology Changes from previous H/P or p: No Changes Eyes: No Pain, No Vision change, No Conjunctivae inflammation, No Eyelid inflammation, No Other, No Redness ENT: No Ear pain, No Ear discharge, No Nose pain, No Nose discharge, No Nose congestion, No Mouth pain, No Mouth swelling, No Throat pain, No Throat swelling, No Other Cardiovascular: No Chest Pain, No Palpitations, No Orthopnea, No Paroxysmal Noc. Dyspnea, No Edema, No Lt Headedness, No Other Respiratory: No Cough, No Dry, No Shortness of breath, No SOB with excertion, No Wheezing, No Hemoptysis, No Pleuritic Pain, No Sputum, No Other Gastrointestinal: Nausea, Vomiting, Abdominal Pain; No Diarrhea, No Constipation; Melena, Hematochezia; No Other Genitourinary: No Dysuria, No Frequency, No Incontinence, No Hematuria, No Retention, No Other Musculoskeletal: No other, No neck pain, No shoulder pain, No arm pain, No back pain, No hand pain, No leg pain, No foot pain Skin: Rash; No Lesions, No Jaundice, No Bruising, No Other Objective Vitals Vital Signs Date Time Temp Pulse Resp B/P (MAP) Pulse Ox O2 Delivery O2 Flow Rate FiO2 12/21/24 09:00 98.2 70 18 109/66 (80) 95 98.2 12/21/24 08:00 Room Air* 0 21 Intake/Output Intake and Output 12/21/24 07:00 Intake Total 4110 ml Output Total 600 ml Balance 3510 ml Intake Oral 1120 ml IV Total 2990 ml Output Urine Total 600 ml # Voids 2 # Bowel Movements 1 General Appearance: Alert, Oriented X3, Cooperative, No acute distress HEENT: Atraumatic, PERRLA, EOMI, Mucous membr. moist/pink Neck: Supple Lungs: Clear to auscultation, Normal air movement Cardiovascular: Regular rate, Normal S1, Normal S2, No murmurs, Gallops, Rubs Abdomen: Normal bowel sounds, Soft, No tenderness, No hepatospenomegaly Neuro: Cranial nerves 3-12 NL Psych/Mental Status: Mental status NL Medications Current Medications Medications Dose Ordered Sig/Taylor Route Start Time Stop Time Status Last Admin Dose Admin Pantoprazole Sodium 50 ml @ 10 mls/hr Q5H IV 12/19/24 16:00 12/21/24 08:42 10 MLS/HR Chlordiazepoxide HCl 25 mg Q12HR PO 12/21/24 22:00 12/22/24 10:01 Chlordiazepoxide HCl 25 mg QAM PO 12/22/24 22:00 12/22/24 22:01 Sodium Chloride 1,000 ml @ 120 mls/hr Q8H20M IV 12/19/24 16:00 12/21/24 05:35 120 MLS/HR Ondansetron HCl 4 mg Q4HP PRN IV 12/19/24 16:00 Docusate Sodium 100 mg BIDPRN PRN PO 12/19/24 16:00 Morphine Sulfate 2 mg Q4HPRN PRN IV 12/19/24 16:00 Nitroglycerin 0.4 mg Q5MINP PRN SL 12/19/24 16:00 Lorazepam 1 mg Q2HPRN PRN IV 12/19/24 16:00 Diphenhydramine HCl 25 mg Q6HP PRN PO 12/20/24 05:45 12/20/24 20:15 25 MG Folic Acid 1 mg DAILY PO 12/21/24 10:00 12/21/24 08:42 1 MG Multivitamins 1 tab DAILY PO 12/21/24 10:00 12/21/24 08:40 1 TAB Magnesium Oxide 400 mg DAILY PO 12/21/24 10:00 12/21/24 08:41 400 MG Thiamine HCl 100 mg DAILY PO 12/21/24 10:00 12/21/24 08:42 100 MG Laboratory Results Laboratory Tests 12/21/24 06:36 Chemistry Test 12/21/24 06:36 Calcium Level 8.2 mg/dL (8.7-10.4) L Urinalysis Test 12/19/24 00:00 Urine Color Light-orange (Yellow) Urine Clarity Turbid (Clear) H Urine pH 6.0 (5.0-9.0) Urine Specific [place] 1.027 (1.001-1.035) Urine Protein Trace (Negative) H Urine Ketones 1+ (Negative) H Urine Blood Negative /uL (Negative) Urine Nitrite Negative (Negative) Urine Bilirubin Negative (Negative) Urine Urobilinogen Normal mg/dL (Negative) Urine Leukocyte Esterase Negative /uL (Negative) Urine RBC <1 /hpf (0 - 3) Urine Microscopic WBC 1 /HPF (0-3) Urine Squamous Epithelial Cells Few /hpf (<5) Urine Bacteria None seen /hpf (None Seen) Urine Hyaline Casts Mod /lpf (0 - 2) Urine Mucus Few (None Seen) Urine Glucose Normal mg/dL (Normal) Microbiology Microbiology Date/Time Source Procedure Growth Status 12/20/24 00:44 Nose MRSA Screen - Final Complete Labs and/or images reviewed: Labs reviewed by me Assessment/Plan Assessment/Plan Acute Upper gastrointestinal bleeding likely secondary to ?esophageal varices or gastritis associated with alcohol use and hiatal hernia Acute Alcohol withdrawal risk in setting of chronic use Acute Hyponatremia likely due to chronic alcohol use and volume depletion acute Depression with psychosocial stressors related to housing instability Chronic Seizure disorder, stable on home medications Acute Hepatomegaly likely secondary to alcoholic liver disease Acute Hiatal hernia identified on imaging Acute Bilateral inguinal hernias (right > left), asymptomatic without strangulation Alcohol Use Disorder Seizure Disorder Depression Status Post Neurosurgery Continuing current management. Continuing with Protonix. Continuing with IV fluid. Waiting for GI specialist to see the patient. Advance patient's diet to clear Liquid diet. Waiting for GI specialist to see the patient. Continuing with seizure medication. Continuing with banana bag and alcohol withdrawal protocol. This medical document was created using an electronic medical record system with [employer] direct computerized dictation system. Although this document has been carefully reviewed, there may still be some phonetic and typographical errors. These areas are purely typographical due to imperfections of the software programs, and do not reflect any compromise in the patient's medical care. Plan discussed with: Patient My Orders Orders - GARY AVILES MD Procedure Category Date Status Time Soft Diet DIET 12/20/24 Transmitted Dinner Date of Service: Dec 21, 2024 Billing Provider: GARY AVILES MD Common Visit Codes: [id number] INP/OBS CARE(HIGH) GARY AVILES MD Dec 21, 2024 11:13
--- NOTE | 2024-12-21 13:20 | DVHINCON2 ---
GI Consult Consult Note GI consult note Date of Consultation: 12/21/2024 Chief Complaint: Upper GI bleed Referring Physician: Sharif MORRISON H&P: 54-year-old male presents to ER with coffee-ground emesis started last , patient had four episodes of coffee-ground emesis, last episode last Saturday. No nausea or vomiting now. Patient denies abdominal pain. Patient denies melena or red blood in stool. One episode of dark stool only Patient admits to GERD symptoms. History of alcohol use every day for the past one year No EGD or colonoscopy in the past Patient also has noticed slurred speech, neurology consult pending. Patient has history of seizure No blood thinners Past Medical History: Seizure, chronic alcoholic, depression Past Surgical History: Denies Social History: NO smoking, heavy drinking ETOH Family History: Noncontributory Review of Systems: Constitutional: no fever, chill, weight loss HEENT: no eye pain, no hearing loss, no oral lesion, no scleral icterus Heart: no chest pain, no chest pressure Lung: no cough, no dyspnea with exertion Abdomen: see HPI Physical exam: General: NAD, AAOX3 Chest: lung liao clear to auscultation Heart: RRR, no murmur Abdomen: non-distended, no tenderness to palpation, +BS Labs: Chemistry Test 12/21/24 06:36 Calcium Level 8.2 mg/dL (8.7-10.4) L Urinalysis Test 12/19/24 00:00 Urine Color Light-orange (Yellow) Urine Clarity Turbid (Clear) H Urine pH 6.0 (5.0-9.0) Urine Specific [place] 1.027 (1.001-1.035) Urine Protein Trace (Negative) H Urine Ketones 1+ (Negative) H Urine Blood Negative /uL (Negative) Urine Nitrite Negative (Negative) Urine Bilirubin Negative (Negative) Urine Urobilinogen Normal mg/dL (Negative) Urine Leukocyte Esterase Negative /uL (Negative) Urine RBC <1 /hpf (0 - 3) Urine Microscopic WBC 1 /HPF (0-3) Urine Squamous Epithelial Cells Few /hpf (<5) Urine Bacteria None seen /hpf (None Seen) Urine Hyaline Casts Mod /lpf (0 - 2) Urine Mucus Few (None Seen) Urine Glucose Normal mg/dL (Normal) Microbiology Microbiology Date/Time Source Procedure Growth Status 12/20/24 00:44 Nose MRSA Screen - Final Complete Imaging: CT abdomen pelvis IMPRESSION: 1. Moderate esophageal hiatal hernia. 2. Hepatomegaly with fatty infiltration. 3. Umbilical hernia containing fat. 4. Bilateral inguinal hernias, larger on the right. Abdominal ultrasound IMPRESSION: 1. Hepatic steatosis. 2. No acute abnormality. Assessment: GI bleed Acute alcohol withdrawal Moderate esophageal hiatal hernia Hepatomegaly Seizure disorder Plan: Discussed with Dr. Hill Tentative plan for EGD for tomorrow 12/22/2024, after patient has been cleared by Neurology. Patient also asking if the procedure can be done on an outpatient basis, has recently sold his home and has some paperwork to take care of. Discussed risks of leaving if patient continues to bleed - Pt was informed of the risks (bleeding, infection, perforation, reaction to sedation medications and cardiopulmonary arrest) and benefit and is agreeable to undergo the procedures. NPO after midnight Protonix DC alcohol discussed extensively Hold blood thinners Discussed plan with patient and RN Thank you for the consult Date of Service: Dec 21, 2024 Billing Provider: LINH CORRAL Common Visit Codes: CONSULT ONLY Consultation Codes: [id number] CONSULT <60MIN LINH CORRAL Dec 21, 2024 13:20
[2024-12-21] MEDS ORDERED: chlordiazePOXIDE HCL 25 MG CAP PO SCH (22:00)
[2024-12-22] VITALS (9 sets, daily range): BP systolic 108–129; BP diastolic 54–85; PULSE 70–111; RESP 17–20; TEMP 97.7–98.6; O2SAT 96–98
[2024-12-22] MEDS ORDERED: fentaNYL CITRATE 100 MCG/2 ML VL ONE (14:20)
[2024-12-22] MEDS ORDERED: PROPOFOL 10 MG/ML 20 ML IV ONE (14:36)
--- NOTE | 2024-12-22 15:41 | DVHOP2 ---
Operative Report DATE OF OPERATION: 12/22/24 PROCEDURE: Upper Endoscopy with biopsy. PREOPERATIVE INDICATION: The patient is a 54 -year-old male undergoing endoscopy for upper GI bleed coffee-ground emesis POSTOPERATIVE DIAGNOSES: 1. Patient had a 3-4 cm sliding-type hiatal hernia with severe grade C erosive esophagitis extending into the distal 12-15 cm of the esophagus from which biopsies were obtained 2. Mild gastroduodenitis otherwise normal examination up to the 2nd and 3rd part of the duodenum PROCEDURE PERFORMED BY: Maria Eugenia Hill GI NURSE: Lorrie SCOPE: Olympus videoendoscope. ASA CLASS: 3. PREOPERATIVE MEDICATIONS: Mac sedationDr. Eaton PROCEDURE IN DETAIL: After obtaining an informed consent, the patient was placed on left lateral decubitus position. The patient was then sedated with the above medications. A bite block was placed between his teeth. The endoscope was then passed through the oropharynx, into the esophagus, and through the stomach and pylorus up to the second and third part of the duodenum. The endoscope was then withdrawn. The 2nd and 3rd part of the duodenum and the duodenal bulb were normal. Duodenal biopsies were obtained The pre-pyloric area antrum and body showed minimal gastritis. Gastric biopsies were obtained. On retroflexion the fundus cardia and angularis were normal. A hiatal hernia was noted. The endoscope was then withdrawn into the distal esophagus. Patient had a 3-4 cm sliding-type hiatal hernia There was grade C erosive esophagitis with esophageal ulcers extending into the distal 12 through 15 cm of the esophagus Esophageal biopsies were obtained. The remaining proximal esophagus and oropharynx were unremarkable The patient tolerated the procedure well without difficulty. There was no fresh or old blood in the upper GI tract COMPLICATIONS : None SPECIMENS: Duodenal biopsies Gastric biopsies Esophageal biopsies DISPOSITION: Transfer back to the floor Stable PLAN: 1. Await for biopsy result 2. Will place pt on Protonix 40 mg bid IV 3. Carafate 1 g p.o. 4 times a day 4. Full liquid diet advance as tolerated 5. Lifestyle and dietary modifications for GERD 6. Patient will need to be maintained on a PPI long-term and he was advised to discontinue alcohol MARIA EUGENIA HILL MD Dec 22, 2024 15:41
[2024-12-22] MEDS: SUCRALFATE 1 GM/10 ML ORAL SUSP PO SCH (18:49)
[2024-12-22] MEDS ORDERED: chlordiazePOXIDE HCL 25 MG CAP PO SCH (22:00)
--- NOTE | 2024-12-22 22:37 | DVHPN2 ---
Subjective The patient is seen and examined at bedside. No complaint today. Reviewed: Care Plan, H&P, Labs, Medications, Previous Orders, Radiology Changes from previous H/P or p: No Changes Eyes: No Pain, No Vision change, No Conjunctivae inflammation, No Eyelid inflammation, No Other, No Redness ENT: No Ear pain, No Ear discharge, No Nose pain, No Nose discharge, No Nose congestion, No Mouth pain, No Mouth swelling, No Throat pain, No Throat swelling, No Other Cardiovascular: No Chest Pain, No Palpitations, No Orthopnea, No Paroxysmal Noc. Dyspnea, No Edema, No Lt Headedness, No Other Respiratory: No Cough, No Dry, No Shortness of breath, No SOB with excertion, No Wheezing, No Hemoptysis, No Pleuritic Pain, No Sputum, No Other Gastrointestinal: Nausea, Vomiting, Abdominal Pain; No Diarrhea, No Constipation; Melena, Hematochezia; No Other Genitourinary: No Dysuria, No Frequency, No Incontinence, No Hematuria, No Retention, No Other Musculoskeletal: No other, No neck pain, No shoulder pain, No arm pain, No back pain, No hand pain, No leg pain, No foot pain Skin: Rash; No Lesions, No Jaundice, No Bruising, No Other Objective Vitals Vital Signs Date Time Temp Pulse Resp B/P (MAP) Pulse Ox O2 Delivery O2 Flow Rate FiO2 12/22/24 21:00 98.0 70 18 108/54 (72) 96 98.0 12/22/24 14:38 Room Air 12/22/24 14:38 96 12/22/24 08:00 0 Intake/Output Intake and Output 12/22/24 07:00 Intake Total 3480 ml Output Total 1800 ml Balance 1680 ml Intake Oral 1280 ml IV Total 2200 ml Output Urine Total 1800 ml # Voids 2 # Bowel Movements 1 General Appearance: Alert, Oriented X3, Cooperative, No acute distress HEENT: Atraumatic, PERRLA, EOMI, Mucous membr. moist/pink Neck: Supple Lungs: Clear to auscultation, Normal air movement Cardiovascular: Regular rate, Normal S1, Normal S2, No murmurs, Gallops, Rubs Abdomen: Normal bowel sounds, Soft, No tenderness, No hepatospenomegaly Neuro: Cranial nerves 3-12 NL Psych/Mental Status: Mental status NL Medications Current Medications Medications Dose Ordered Sig/Taylor Route Start Time Stop Time Status Last Admin Dose Admin Pantoprazole Sodium 50 ml @ 10 mls/hr Q5H IV 12/19/24 16:00 12/22/24 19:04 10 MLS/HR Sodium Chloride 1,000 ml @ 120 mls/hr Q8H20M IV 12/19/24 16:00 12/22/24 15:55 120 MLS/HR Ondansetron HCl 4 mg Q4HP PRN IV 12/19/24 16:00 Docusate Sodium 100 mg BIDPRN PRN PO 12/19/24 16:00 Morphine Sulfate 2 mg Q4HPRN PRN IV 12/19/24 16:00 Nitroglycerin 0.4 mg Q5MINP PRN SL 12/19/24 16:00 Lorazepam 1 mg Q2HPRN PRN IV 12/19/24 16:00 Diphenhydramine HCl 25 mg Q6HP PRN PO 12/20/24 05:45 12/20/24 20:15 25 MG Folic Acid 1 mg DAILY PO 12/21/24 10:00 12/22/24 09:27 1 MG Multivitamins 1 tab DAILY PO 12/21/24 10:00 12/22/24 09:27 1 TAB Magnesium Oxide 400 mg DAILY PO 12/21/24 10:00 12/22/24 09:27 400 MG Thiamine HCl 100 mg DAILY PO 12/21/24 10:00 12/22/24 09:27 100 MG Sucralfate 1 gm QID@0600,1130,1700,2200 PO 12/22/24 17:00 12/22/24 21:47 1 GM Laboratory Results Laboratory Tests 12/21/24 06:36 Urinalysis Test 12/19/24 00:00 Urine Color Light-orange (Yellow) Urine Clarity Turbid (Clear) H Urine pH 6.0 (5.0-9.0) Urine Specific [place] 1.027 (1.001-1.035) Urine Protein Trace (Negative) H Urine Ketones 1+ (Negative) H Urine Blood Negative /uL (Negative) Urine Nitrite Negative (Negative) Urine Bilirubin Negative (Negative) Urine Urobilinogen Normal mg/dL (Negative) Urine Leukocyte Esterase Negative /uL (Negative) Urine RBC <1 /hpf (0 - 3) Urine Microscopic WBC 1 /HPF (0-3) Urine Squamous Epithelial Cells Few /hpf (<5) Urine Bacteria None seen /hpf (None Seen) Urine Hyaline Casts Mod /lpf (0 - 2) Urine Mucus Few (None Seen) Urine Glucose Normal mg/dL (Normal) Microbiology Microbiology Date/Time Source Procedure Growth Status 12/20/24 00:44 Nose MRSA Screen - Final Complete Labs and/or images reviewed: Labs reviewed by me Assessment/Plan Assessment/Plan Acute Upper gastrointestinal bleeding likely secondary to ?esophageal varices or gastritis associated with alcohol use and hiatal hernia Acute Alcohol withdrawal risk in setting of chronic use Acute Hyponatremia likely due to chronic alcohol use and volume depletion acute Depression with psychosocial stressors related to housing instability Chronic Seizure disorder, stable on home medications Acute Hepatomegaly likely secondary to alcoholic liver disease Acute Hiatal hernia identified on imaging Acute Bilateral inguinal hernias (right > left), asymptomatic without strangulation Alcohol Use Disorder Seizure Disorder Depression Status Post Neurosurgery Continuing current management. Continuing with Protonix. Continuing with IV fluid. Waiting for GI specialist to see the patient. Advance patient's diet to clear Liquid diet. Waiting for EGD. Continuing with seizure medication. Continuing with banana bag and alcohol withdrawal protocol. This medical document was created using an electronic medical record system with [employer] direct computerized dictation system. Although this document has been carefully reviewed, there may still be some phonetic and typographical errors. These areas are purely typographical due to imperfections of the software programs, and do not reflect any compromise in the patient's medical care. Plan discussed with: Patient Date of Service: Dec 22, 2024 Billing Provider: GARY AVILES MD Common Visit Codes: [id number] INP/OBS CARE(HIGH) GARY AVILES MD Dec 22, 2024 22:37
[2024-12-23 05:00] VITALS: BP 123/83; PULSE 78; RESP 18; TEMP 98.2; O2SAT 98
[2024-12-23 08:00] VITALS: PULSE 72; RESP 18
[2024-12-23 09:00] VITALS: BP 125/79; PULSE 86; RESP 18; TEMP 98.7; O2SAT 91
--- NOTE | 2024-12-23 10:15 | DVHPN2 ---
Progress Note Date Seen: Dec 23, 2024 Resident Creating Document: GEOVANNI ERWIN RESIDENT Medical Necessity Reason Pt with a Central, PICC or Fol: No Subjective Review of Systems Patient seen and examined at the bedside. Patient reported improvement in his symptoms since admission, reported no new complaints. Advanced diet as tolerated. Patient finished a EGD yesterday. Patient reports: No new complaints, Feels better Objective vital signs Vital Sign Date Time Temp Pulse Resp B/P (MAP) Pulse Ox O2 Delivery O2 Flow Rate FiO2 12/23/24 08:00 18 Room Air* 0 21 12/23/24 05:00 98.2 78 123/83 (96) 98 98.2 Total Intake and Output 12/22/24 12/22/24 12/23/24 15:00 23:00 07:00 Intake Total 400 ml 1170 ml 1580 ml Output Total 6 ml Balance 400 ml 1164 ml 1580 ml medications Current Medications Medications Dose Ordered Sig/Taylor Route Start Time Stop Time Status Last Admin Dose Admin Pantoprazole Sodium 50 ml @ 10 mls/hr Q5H IV 12/19/24 16:00 12/23/24 05:25 10 MLS/HR Sodium Chloride 1,000 ml @ 120 mls/hr Q8H20M IV 12/19/24 16:00 12/23/24 08:32 120 MLS/HR Ondansetron HCl 4 mg Q4HP PRN IV 12/19/24 16:00 Docusate Sodium 100 mg BIDPRN PRN PO 12/19/24 16:00 Morphine Sulfate 2 mg Q4HPRN PRN IV 12/19/24 16:00 Nitroglycerin 0.4 mg Q5MINP PRN SL 12/19/24 16:00 Lorazepam 1 mg Q2HPRN PRN IV 12/19/24 16:00 Diphenhydramine HCl 25 mg Q6HP PRN PO 12/20/24 05:45 12/20/24 20:15 25 MG Folic Acid 1 mg DAILY PO 12/21/24 10:00 12/23/24 09:23 1 MG Multivitamins 1 tab DAILY PO 12/21/24 10:00 12/23/24 09:23 1 TAB Magnesium Oxide 400 mg DAILY PO 12/21/24 10:00 12/23/24 09:22 400 MG Thiamine HCl 100 mg DAILY PO 12/21/24 10:00 12/23/24 09:22 100 MG Sucralfate 1 gm QID@0600,1130,1700,2200 PO 12/22/24 17:00 12/23/24 05:25 1 GM Examination Pt is lying on bed General Appearance: Alert, Oriented X3, Cooperative, Not in acute distress HEENT: Atraumatic, Mucous membranes moist/pink Respiratory: Clear to auscultation, Normal air movement, No added sounds Cardiovascular: Regular rate, Normal S1, Normal S2, No murmurs Abdominal: Active bowel sounds, Soft, no distention, no tenderness Extremities: No edema, Normal pulses, No tenderness/swelling Skin: No Significant rash, except past surgical scars Neuro: Normal speech, sensorimotor deficits none Psych/Mental Status: Mental status NL, Mood NL Nurse was there as sharperone during examination laboratory and microbiology Laboratory Tests 12/21/24 06:36 Test 12/21/24 06:36 Range/Units Serum Glucose 81 74-106 mg/dL Microbiology Date/Time Source Procedure Growth Status 12/20/24 00:44 Nose MRSA Screen - Final Complete Labs and/or images reviewed: Labs reviewed by me, Image(s) reviewed by me Problem List/Assessment/Plan Problem List/Assessment/Plan Sliding hiatal hernia with severe grade C erosive esophagitis Mild gastroduodenitis GI bleed Acute alcohol withdrawal Moderate esophageal hiatal hernia Hepatomegaly Seizure disorder PLAN: EGD yesterday showed 3-4 cm sliding hiatal hernia with severe grade C erosive esophagitis Protonix 40 mg IV b.i.d. Carafate 1 g p.o. q.i.d. Advanced diet as tolerated Lifestyle and dietary modifications for GERD Patient will need PPI long-term and advised to discontinue alcohol Outpatient follow up in 4-6 weeks to discuss the results and further management Thank you for consulting we will follow up the patient Case discussed with the Dr. Avis Hill. Plan discussed with: Patient Dietary Evaluation Review Comments: 1) If patient remains NPO > 7 days, consider EN/TPN to meet at least 75% of estimated daily needs 2) Advance to low-fat diet when medically feasible 3) Continue thiamin supplementation d/t ETOH abuse 4) Follow-up with social media developer regarding alcohol abuse 5) Follow-up with gastroenterology and hepatology 6) Continue to monitor I&O, labs, and skin integrity Expected Outcomes/Goals: 1) appetite and labs to improve 2) diet to advance 3) follow-up in 2-3 days GEOVANNI ERWIN RESIDENT Dec 23, 2024 10:14
--- NOTE | 2024-12-23 11:42 | DVHDS2 ---
Discharge Summary Date of Admission Dec 19, 2024 at 15:56 Date of Discharge: Dec 23, 2024 Admitting Diagnosis Acute Upper gastrointestinal bleeding likely secondary to ?esophageal varices or gastritis associated with alcohol use and hiatal hernia Acute Alcohol withdrawal risk in setting of chronic use Acute Hyponatremia likely due to chronic alcohol use and volume depletion acute Depression with psychosocial stressors related to housing instability Chronic Seizure disorder, stable on home medications Acute Hepatomegaly likely secondary to alcoholic liver disease Acute Hiatal hernia identified on imaging Acute Bilateral inguinal hernias (right > left), asymptomatic without strangulation Alcohol Use Disorder Seizure Disorder Depression Status Post Neurosurgery Labs/Diagnostic Data: Laboratory Results Test 12/21/24 06:36 12/20/24 06:27 12/19/24 16:18 12/19/24 14:31 White Blood Count 5.1 10^3/uL (4.4-10.8) Red Blood Count 2.74 10^6/uL (4.5-5.90) Hemoglobin 9.3 g/dL (13.5-17.5) Hematocrit 27.8 % (41.0-53.0) Mean Corpuscular Volume 101.3 fL (80.0-100.0) Mean Corpuscular Hemoglobin 33.8 pg (28.0-32.0) Mean Corpuscular Hemoglobin Concent 33.3 g/dL (32.0-36.0) Red Cell Distribution Width 17.4 % (11.8-14.3) Platelet Count 134 10^3/uL (140-450) Mean Platelet Volume 8.1 fL (6.9-10.8) Neutrophils (%) (Auto) 54.1 % (37.0-80.0) Lymphocytes (%) (Auto) 35.9 % (10.0-50.0) Monocytes (%) (Auto) 7.9 % (0.0-12.0) Eosinophils (%) (Auto) 1.8 % (0.0-7.0) Basophils (%) (Auto) 0.3 % (0.0-2.0) Neutrophils # (Auto) 2.7 10 ^3/uL (1.6-8.6) Lymphocytes # (Auto) 1.8 10 ^3/uL (0.4-5.4) Monocytes # (Auto) 0.4 10 ^3/uL (0-1.3) Eosinophils # (Auto) 0.1 10 ^3/uL (0-0.8) Basophils # (Auto) 0 10 ^3/uL (0-0.2) Nucleated Red Blood Cells 0.0 % Sodium Level 137 mmol/L (136-145) Potassium Level 3.7 mmol/L (3.5-5.1) Chloride Level 104 mmol/L (98-107) Carbon Dioxide Level 24 mmol/L (20-31) Anion Gap 9 (5-15) Blood Urea Nitrogen 13 mg/dL (9-23) Creatinine 0.89 mg/dL (0.700-1.30) Glomerular Filtration Rate Calc 102 mL/min (>90) BUN/Creatinine Ratio 14.6 (10.0-20.0) Serum Glucose 81 mg/dL (74-106) Calcium Level 8.2 mg/dL (8.7-10.4) Total Bilirubin 1.2 mg/dL (0.2-1.0) Aspartate Amino Transferase (AST) 41 U/L (13-40) Alanine Aminotransferase (ALT) 28 U/L (7-40) Alkaline Phosphatase 78 U/L (46-116) Creatine Kinase 388 U/L (46-171) Total Protein 5.2 g/dL (5.7-8.2) Albumin 3.0 g/dL (3.2-4.8) Lactic Acid Level 1.7 mmol/L (0.4-2.0) Magnesium Level 2.1 mg/dL (1.6-2.6) Plasma/Serum Blood Alcohol 3.2 mg/dL (<10) Troponin I High Sensitivity 9 ng/L (</=54) Test 12/19/24 11:40 12/19/24 11:32 12/19/24 00:00 Prothrombin Time 9.8 sec (9.3-11.8) Prothrombin Time INR 0.92 (0.9-1.15) Activated Partial Thromboplast Time 25.0 SEC (24.5-34.5) B-Type Natriuretic Peptide 33.64 pg/mL (0-100) Lipase 38 U/L (12-53) POC Glucose 116 mg/dl (70-106) Urine Color Light-orange (Yellow) Urine Clarity Turbid (Clear) Urine pH 6.0 (5.0-9.0) Urine Specific [place] 1.027 (1.001-1.035) Urine Protein Trace (Negative) Urine Ketones 1+ (Negative) Urine Blood Negative /uL (Negative) Urine Nitrite Negative (Negative) Urine Bilirubin Negative (Negative) Urine Urobilinogen Normal mg/dL (Negative) Urine Leukocyte Esterase Negative /uL (Negative) Urine RBC <1 /hpf (0 - 3) Urine Microscopic WBC 1 /HPF (0-3) Urine Squamous Epithelial Cells Few /hpf (<5) Urine Bacteria None seen /hpf (None Seen) Urine Hyaline Casts Mod /lpf (0 - 2) Urine Mucus Few (None Seen) Urine Glucose Normal mg/dL (Normal) Urine Opiates Screen Neg (NEGATIVE) Urine Fentanyl Screen Neg (NEGATIVE) Urine Barbiturates Screen Neg (NEGATIVE) Urine Phencyclidine Screen Neg (NEGATIVE) Urine Amphetamines Screen Neg (NEGATIVE) Urine Benzodiazepines Screen Pos (NEGATIVE) Urine Cocaine Screen Neg (NEGATIVE) Urine Cannabinoids Screen Neg (NEGATIVE) Other Laboratory Tests 12/21/24 06:36 Brief Hx & Hospital Course: This is a 54 years old male with past medical history seizure, chronic alcohol abuse, depression, prior neurosurgery came to emergency department because of hematemesis and melena. The patient apparently vomited think dark red blood since and then having a black stool mixed with bright red blood stool. The patient was lightheaded and slurred speech for two days however did not have any syncopal episode. The patient said he compliant with seizure medication however had drink day about four cans of beer. Patient had been drinking like nine months. He said his dress exacerbated after his house for grocery so he is not drinking again. Patient denied any known history of EGD or colonoscopy. The patient was admitted. His CBC is unremarkable. Hemoglobin is stable. CT scan of abdomen and pelvis showed hiatal hernia, hepatomegaly and bilateral inguinal hernia right greater than left. The patient also endose significant depression and agree was psych consulted. He also agree with social and human services assistant to further get information for alcohol rehab as outpatient. The patient had an endoscopy done yesterday by GI specialist Dr. Hill. EGD showed: Patient had a 3-4 cm sliding-type hiatal hernia with severe grade C erosive esophagitis extending into the distal 12-15 cm of the esophagus from which biopsies were obtained .Mild gastroduodenitis otherwise normal examination up to the 2nd and 3rd part of the duodenum. Dr. Hill recommend Protonix and Carafate. Today the patient had no nausea and vomiting. He tolerated diet. His hemoglobin is stable. Known more dark stool bright red blood stool so I am going to discharge him home. Advised him to follow up with Dr. Hill 4-6 weeks. Patient may need repeat EGD in the future. Advised the patient to stop drinking. Advised the patient to seek help for alcohol rehab as outpatient. Physical exam: HEENT: Normocephalic atraumatic pupils equal react to light and accommodation. Extraocular muscles intact, conjunctiva pink, oropharynx moist, no thrush, no exudate. Lymphatic: No lymphadenopathy Cardiovascular exam: S1, S2 was heard. No murmurs, rubs, gallops Lung: Clear on auscultation bilaterally, no wheeze, rale, rhonchi. GI: Abdominal soft, nondistended, nontenderness, positive bowel sounds. Extremity: No crepitus, cyanosis, edema. Pedal pulses present bilateral. Full range of motion. Skin: Normal turgor, no rash. Psych: Alert, oriented x3. Neurology: No focal deficits, cranial nerve II to XII grossly intact. This medical document was created using an electronic medical record system with [employer] direct computerized dictation system. Although this document has been carefully reviewed, there may still be some phonetic and typographical errors. These areas are purely typographical due to imperfections of the software programs, and do not reflect any compromise in the patient's medical care. Condition at Discharge: Stable Final Diagnosis/Problems List Acute Upper gastrointestinal bleeding likely secondary to ?esophageal varices or gastritis associated with alcohol use and hiatal hernia Acute Alcohol withdrawal risk in setting of chronic use Acute Hyponatremia likely due to chronic alcohol use and volume depletion acute Depression with psychosocial stressors related to housing instability Chronic Seizure disorder, stable on home medications Acute Hepatomegaly likely secondary to alcoholic liver disease Acute Hiatal hernia identified on imaging Acute Bilateral inguinal hernias (right > left), asymptomatic without strangulation Alcohol Use Disorder Seizure Disorder Depression Status Post Neurosurgery Discharge Disposition: Home Discharge Statement: "Patient was advised to return to the ER or call 911 if any headaches, dizziness, shortness of breath, chest pain, abdominal pain, bleeding, fevers, or worsening of medical condition. Patient was counseled about treatment plan, medications, possible side effects, patientverbalized understanding. All questions were answered to the best of my ability. This discharge took greater then 30 minutes in planning, reviewing documentation, counseling the patient, and discussing with other team members." ASSESSMENT ASSESSMENT Assessment Date of Service: Dec 23, 2024 Billing Provider: GARY AVILES MD Common Visit Codes: [id number] DISCH DAY >30min GARY AVILES MD Dec 23, 2024 11:42
[2024-12-23] MEDS ORDERED: SUCR1SUS5 PO (11:43)
[2024-12-23] MEDS ORDERED: PANT40TA2 PO (11:43)
[2024-12-23 13:00] VITALS: BP 107/66; PULSE 76; RESP 20; TEMP 98.4; O2SAT 99
[2024-12-23 16:00] VITALS: BP 122/85; PULSE 80; RESP 18; TEMP 98.3; O2SAT 98
== END 2024-12-23 16:00 | disposition home or self-care (01) | DRG 241 ==
LOC: ER 11:17 → OVERFLOW 15:56 → TELE-CENTR 18:35
PROVIDERS: ADMIT Internal Medicine; ATTEND Internal Medicine
PROC: 0DB68ZX Excision of Stomach, Via Natural or Artificial Opening Endoscopic, Diagnostic (ICD-10-PCS; 2024-12-22)
PROC: 0DB58ZX Excision of Esophagus, Via Natural or Artificial Opening Endoscopic, Diagnostic (ICD-10-PCS; 2024-12-22)
PROC: 0DB98ZX Excision of Duodenum, Via Natural or Artificial Opening Endoscopic, Diagnostic (ICD-10-PCS; principal; 2024-12-22 14:20)
DX: K29.71 Gastritis, unspecified, with bleeding (principal); K22.11 Ulcer of esophagus with bleeding; K70.9 Alcoholic liver disease, unspecified; E87.1 Hypo-osmolality and hyponatremia; R16.0 Hepatomegaly, not elsewhere classified; R71.0 Precipitous drop in hematocrit; K29.91 Gastroduodenitis, unspecified, with bleeding; K76.0 Fatty (change of) liver, not elsewhere classified; G40.909 Epilepsy, unspecified, not intractable, without status epilepticus; K40.20 Bilateral inguinal hernia, without obstruction or gangrene, not specified as recurrent; K44.9 Diaphragmatic hernia without obstruction or gangrene; F10.930 Alcohol use, unspecified with withdrawal, uncomplicated; F32.A Depression, unspecified; Z79.899 Other long term (current) drug therapy; Z88.1 Allergy status to other antibiotic agents; Z88.0 Allergy status to penicillin; Z59.819 Housing instability, housed unspecified
CPT/HCPCS: 36415; 43239; 70450; 71045; 74176; 76705; 80048; 80053; 80307; 80320; 81001; 82550; 82962; 83605; 83690; 83735; 83880; 84484; 85014; 85018; 85025; 85610; 85730; 86850; 86900; 86901; 87081; 93005; 96361; 96374; 96375; 99291; G0378; J2405; J2470; J2704